=== PATIENT | female | born 1960 | race Caucasian/White ===

== ENCOUNTER 2017-03-17 15:30 | Emergency (ER) | payer MEDICAID, OTHER ==
[~2017-03-17] VITALS: Ht 167.6 cm; Wt 94.0 kg
[2017-03-17 15:35] VITALS: Ht 167.6 cm; Wt 94.0 kg
[2017-03-17] MEDS ORDERED: ONDANSETRON (ODT) 4 MG TAB ODT STA (15:57)
[2017-03-17] MEDS ORDERED: ACETAMINOPHEN 325 MG TAB PO ONE (16:00)
--- NOTE | 2017-03-17 16:26 | ERD ---
ER Documentation Chief Complaint Chief Complaint Complains of urine problems x 3 days HPI 56 year old female comes in with painful urination for the past 2-3 days, she feels as if she has had a fever as well and reports low back pain. She describes burning with urination, achy low back pain in the left lumbar region. She has not had any vomiting but reports associated nausea. She has been taking ibuprofen for her symptoms. She denies hematuria. ROS All systems reviewed and are negative except as per history of present illness. Medications Home Meds Active Scripts Acetaminophen with Codeine (Acetaminophen-Cod #3 Tablet) 1 Each Tablet, 1 TAB PO Q6H Y for PAIN, #7 TAB Prov:YAIMA SAMUELS PA-C 03/17/17 Cephalexin* (Keflex*) 500 Mg Capsule, 500 MG PO TID for 10 Days, CAP Prov:YAIMA SAMUELS PA-C 03/17/17 Physical Exam Vitals Vital Signs Date Time Temp Pulse Resp B/P Pulse Ox O2 Delivery O2 Flow Rate FiO2 03/17/17 15:35 98.3 91 20 116/67 94 Physical Exam General: Well-developed, well-nourished. The patient appears in no acute distress. HEENT: Head is normocephalic, atraumatic. No scleral icterus. Neck: Supple. Nontender. Lungs: Clear to auscultation. Normal air movement. Heart: Regular rate and rhythm. S1 and S2 are normal. No murmurs, gallops, or rubs. Abdomen: Soft, nontender, nondistended. Bowel sounds are normoactive. : There is no midline tenderness, lumbosacral tenderness on the left side, no CVA tenderness. Extremities: No clubbing or cyanosis. Normal pulses. Moving extremities x 4. No weakness. Neurologic: Alert and oriented 3. No focal deficits. Skin: Normal turgor. No rash or lesions. Results 24 hrs Laboratory Tests Test 03/17/17 16:11 Urine Color YELLOW Urine Clarity TURBID Urine pH 5.0 Urine Specific [place] 1.016 Urine Ketones NEGATIVEmg/dL Urine Nitrite NEGATIVEmg/dL Urine Bilirubin NEGATIVEmg/dL Urine Urobilinogen NEGATIVEmg/dL Urine Leukocyte Esterase 2+Felisha/ul Urine Microscopic RBC 20/HPF Urine Microscopic WBC > 182/HPF Urine Squamous Epithelial Cells MANY/HPF Urine Bacteria FEW/HPF Urine Mucus FEW/HPF Urine Hemoglobin 1+mg/dL Urine Glucose 1+mg/dL Urine Total Protein 2+mg/dl Current Medications Medications (Trade) Dose Ordered Sig/José Route PRN Reason Start Time Stop Time Status Last Admin Dose Admin Ondansetron HCl (Zofran Odt) 4 mg ONCE STAT ODT 03/17/17 15:57 03/17/17 15:59 DC 03/17/17 16:11 Acetaminophen (Tylenol Tab) 650 mg ONCE ONCE PO 03/17/17 16:00 03/17/17 16:01 DC 03/17/17 16:11 Ceftriaxone Sodium (Rocephin) 1 gm ONCE ONCE IM 03/17/17 17:00 03/17/17 17:01 Lidocaine (Xylocaine 1% (Mdv) 20 ml) 2 ml ONCE ONCE IM 03/17/17 17:00 03/17/17 17:01 Procedures/MDM 56-year-old female comes in with symptoms of a UTI with low back pain. She reports tactile fevers at home and a urinalysis is consistent with UTI with 2+ leukocyte esterase and greater than 182 white blood cells. She is afebrile, her vitals are normal, the patient does not appear to be in sepsis. She does not have any clinical signs of pyelonephritis including CVA tenderness. Patient 's back pain is in the lumbar region. However given her age, history of diabetes, and history tactile fevers the patient was given Rocephin. She will be given Keflex, advised increase fluids, take ibuprofen and Tylenol were through be written for supplemental pain. Departure Diagnosis: Primary Impression: UTI (urinary tract infection) Condition: YAIMA De La Rosa PA-C Mar 17, 2017 16:26
[2017-03-17 16:36] LABS: ADD UMIC YES; UR ASCORBIC ACID NEGATIVE (NEGATIVE); UR BACTERIA FEW /HPF (NONE SEEN); UR BILIRUBIN (Dip) NEGATIVE (NEGATIVE); UR BLOOD (Dip) 1+ mg/dL (NEGATIVE); UR CLARITY TURBID (CLEAR); UR COLOR YELLOW (YELLOW); UR GLUCOSE (Dip) 1+ mg/dL (NEGATIVE); UR KETONES (Dip) NEGATIVE (NEGATIVE); UR LEUKOCYTE ESTERASE (Dip) 2+ Leu/ul (NEGATIVE); UR MUCUS FEW /HPF (NONE SEEN); UR NITRITE (Dip) NEGATIVE (NEGATIVE); UR RBC 20 /HPF (0-5); UR SPECIFIC GRAVITY (Dip) 1.016 (1.003-1.030); UR SQUAMOUS EPITHELIAL CELL MANY /HPF (FEW); UR TOTAL PROTEIN (Dip) 2+ mg/dl (NEGATIVE); UR UROBILINOGEN (Dip) NEGATIVE (NEGATIVE)
[2017-03-17] MEDS ORDERED: CEPH-443 PO (16:39)
[2017-03-17] MEDS ORDERED: ACET1TAB40 PO (16:39)
[2017-03-17] MEDS ORDERED: LIDOCAINE 1% (MDV) 20 ML INJ IM ONE (17:00)
[2017-03-17] MEDS ORDERED: CEFTRIAXONE 1 GM INJ IM ONE (17:00)
== END 2017-03-17 17:18 | disposition home or self-care (01) ==
LOC: FTE 15:30
DX: N39.0 Urinary tract infection, site not specified (principal)
CPT/HCPCS: 81001; 96372; J0696; Z7502; Z7610

== ENCOUNTER 2017-03-21 17:01 | Emergency (ER) | payer MEDICAID ==
[~2017-03-21] VITALS: Wt 77.3 kg
[~2017-03-21 17:01] MED LIST: ACET1TAB40 PO; CEPH-443 PO
[2017-03-21] MEDS ORDERED: SOD CHLORIDE 0.9% 1,000 ML IV STA ×2 (17:51→19:22)
[2017-03-21] MEDS ORDERED: CIPROFLOXACIN 400MG/D5W 200 ML IVPB STA (17:58)
[2017-03-21 18:43] LABS: ADD UMIC NO; UR ASCORBIC ACID NEGATIVE (NEGATIVE); UR BILIRUBIN (Dip) NEGATIVE (NEGATIVE); UR BLOOD (Dip) NEGATIVE (NEGATIVE); UR CLARITY CLEAR (CLEAR); UR COLOR YELLOW (YELLOW); UR GLUCOSE (Dip) 3+ mg/dL (NEGATIVE); UR KETONES (Dip) NEGATIVE (NEGATIVE); UR LEUKOCYTE ESTERASE (Dip) NEGATIVE Leu/ul (NEGATIVE); UR NITRITE (Dip) NEGATIVE (NEGATIVE); UR SPECIFIC GRAVITY (Dip) 1.021 (1.003-1.030); UR TOTAL PROTEIN (Dip) NEGATIVE (NEGATIVE); UR UROBILINOGEN (Dip) NEGATIVE (NEGATIVE)
[2017-03-21 18:49] LABS: BASOPHIL # 0.1 10^3/ul (0.0-0.1); BASOPHILS % 0.5 % (0.0-2.0); EOSINOPHILS # 0.3 10^3/ul (0.0-0.5); EOSINOPHILS % 2.7 % (0.0-7.0); HEMATOCRIT 39.3 % (37.0-47.0); HEMOGLOBIN 12.9 g/dl (12.0-16.0); LYMPHOCYTES # 2.2 10^3/ul (0.8-2.9); LYMPHOCYTES % 23.9 % (15.0-51.0); MEAN CORPUSCULAR HEMOGLOBIN 29.1 pg (29.0-33.0); MEAN CORPUSCULAR HGB CONC 32.8 g/dl (32.0-37.0); MEAN CORPUSCULAR VOLUME 88.7 fl (82.0-101.0); MEAN PLATELET VOLUME 11.1 fl (7.4-10.4); MONOCYTE # 1.2 10^3/ul (0.3-0.9); MONOCYTES % 12.6 % (0.0-11.0); NEUTROPHIL # 5.5 10^3/ul (1.6-7.5); NEUTROPHILS % 59.7 % (39.0-77.0); PLATELET COUNT 171 10^3/UL (140-415); RED BLOOD COUNT 4.43 10^6/ul (4.20-5.40); RED CELL DISTRIBUTION WIDTH 12.9 % (11.5-14.5); WHITE BLOOD COUNT 9.3 10^3/ul (4.8-10.8)
[2017-03-21 19:18] LABS: ALBUMIN 3.5 g/dl (3.3-4.9); ALBUMIN/GLOBULIN RATIO 0.79; BILIRUBIN,INDIRECT 0.3 mg/dl (0-1.1); BILIRUBIN,TOTAL 0.3 mg/dl (0.2-1.3); CALCIUM 9.3 mg/dl (8.4-10.2); CREATININE 0.86 mg/dl (0.44-1.00); POTASSIUM 3.8 mmol/L (3.5-5.1); TOTAL PROTEIN 7.9 g/dl (6.1-8.1)
[2017-03-21] MEDS ORDERED: metFORMIN 500 MG TAB PO STA (19:24)
[2017-03-21] MEDS ORDERED: PHEN-538 PO (19:32)
[2017-03-21 20:27] VITALS: BP 118/77; PULSE 75; RESP 16; TEMP 98.3
--- NOTE | 2017-03-21 23:41 | ERD ---
ER Documentation Chief Complaint Chief Complaint unresolved uti HPI This is a 56-year-old female with diabetes type 2 presenting to the emergency department stating that she still has mild dysuria for the past 5 days. Patient was seen here a few days prior to being seen and was diagnosed with a urinary tract infection. Patient was given ceftriaxone in the ED and a prescription for Keflex as an outpatient. Patient denies any flank pain, fevers , hematuria. States that she took metformin this morning but did not take her evening dose yet ROS All systems reviewed and are negative except as per history of present illness. Medications Home Meds Active Scripts Phenazopyridine Hcl* (Pyridium*) 200 Mg Tab, 200 MG PO TID Y for URINARY PAIN, # 10 TAB Prov:GAGAN VALDEZ PA-C 03/21/17 Acetaminophen with Codeine (Acetaminophen-Cod #3 Tablet) 1 Each Tablet, 1 TAB PO Q6H Y for PAIN, #7 TAB Prov:YAIMA SAMUELS PA-C 03/17/17 Cephalexin* (Keflex*) 500 Mg Capsule, 500 MG PO TID for 10 Days, CAP Prov:YAIMA SAMUELS PA-C 03/17/17 PMhx/Soc Medical and Surgical Hx: pt denies Medical Hx, pt denies Surgical Hx Hx Alcohol Use: No Hx Substance Use: No Hx Tobacco Use: No Smoking Status: Never smoker Physical Exam Vitals Vital Signs Date Time Temp Pulse Resp B/P Pulse Ox O2 Delivery O2 Flow Rate FiO2 03/21/17 20:27 98.3 75 16 118/77 98 Room Air 03/21/17 17:02 99.9 94 20 122/81 98 Physical Exam General: well-developed/well-nourished, in no apparent distress, non-toxic appearing HENT: NC/AT Eyes: Conjunctiva normal Neck: Supple Pulm: CTA bilaterally, normal breathing CV: Normal S1S2 GI: Soft, non-distended, normal bowel sounds, tender to palpation all quadrants Back: No midline tenderness, no masses, No CVAT Ext: No clubbing, cyanosis, or edema Neuro: Alert and orientated Skin: intact, normal turgor Psych: Normal mood and mentation Result Diagram: 03/21/17 1824 03/21/17 182 Results 24 hrs Laboratory Tests Test 03/21/17 18:20 03/21/17 18:24 03/21/17 19:51 Urine Color YELLOW Urine Clarity CLEAR Urine pH 6.0 Urine Specific [place] 1.021 Urine Ketones NEGATIVEmg/dL Urine Nitrite NEGATIVEmg/dL Urine Bilirubin NEGATIVEmg/dL Urine Urobilinogen NEGATIVEmg/dL Urine Leukocyte Esterase NEGATIVELeu/ul Urine Hemoglobin NEGATIVEmg/dL Urine Glucose 3+mg/dL Urine Total Protein NEGATIVEmg/dl White Blood Count 9.310^3/ul Red Blood Count 4.4310^6/ul Hemoglobin 12.9g/dl Hematocrit 39.3% Mean Corpuscular Volume 88.7fl Mean Corpuscular Hemoglobin 29.1pg Mean Corpuscular Hemoglobin Concent 32.8g/dl Red Cell Distribution Width 12.9% Platelet Count 89474^3/UL Mean Platelet Volume 11.1fl Neutrophils % 59.7% Lymphocytes % 23.9% Monocytes % 12.6% Eosinophils % 2.7% Basophils % 0.5% Nucleated Red Blood Cells % 0.0/100WBC Neutrophils # 5.510^3/ul Lymphocytes # 2.210^3/ul Monocytes # 1.210^3/ul Eosinophils # 0.310^3/ul Basophils # 0.110^3/ul Nucleated Red Blood Cells # 0.010^3/ul Sodium Level 139mmol/L Potassium Level 3.8mmol/L Chloride Level 98mmol/L Carbon Dioxide Level 32mmol/L Anion Gap 13 Blood Urea Nitrogen 16mg/dl Creatinine 0.86mg/dl Glucose Level 343mg/dl Calcium Level 9.3mg/dl Total Bilirubin 0.3mg/dl Direct Bilirubin 0.00mg/dl Indirect Bilirubin 0.3mg/dl Aspartate Amino Transf (AST/SGOT) 33IU/L Alanine Aminotransferase (ALT/SGPT) 49IU/L Alkaline Phosphatase 185IU/L Total Protein 7.9g/dl Albumin 3.5g/dl Globulin 4.40g/dl Albumin/Globulin Ratio 0.79 Lipase 122U/L Bedside Glucose 304mg/dL Current Medications Medications (Trade) Dose Ordered Sig/José Route PRN Reason Start Time Stop Time Status Last Admin Dose Admin Sodium Chloride 1,000 ml @ 1,000 mls/hr Q1H STAT IV 03/21/17 17:51 03/21/17 18:50 DC 03/21/17 18:33 Ciprofloxacin/ Dextrose 200 ml @ 200 mls/hr ONCE STAT IVPB 03/21/17 17:58 03/21/17 18:57 DC 03/21/17 17:58 Sodium Chloride (NS) 1,000 ml @ 1,000 mls/hr Q1H STAT IV 03/21/17 19:22 03/21/17 19:25 DC Metformin HCl (Glucophage) 500 mg ONCE STAT PO 03/21/17 19:24 03/21/17 19:25 DC 03/21/17 20:09 Procedures/MDM 6-year-old female with history of diabetes type 2 presents the emergency department complaining of dysuria for the past 5 days. Patient was seen at this facility on March 17 and given Keflex as an outpatient. A urinalysis was done today and did not show any evidence of infection, I discussed with patient that it is best for her to continue to take Keflex. A urine culture was sent out. Lab work was drawn. CBC did not show any evidence of leukocytosis or anemia. CMP did not show any evidence of renal, liver, or electrolyte abnormalities. Glucose was elevated on 350 without any evidence of DKA or hyperosmolar state. Patient was given 1 L of fluids and her Metformin dose. Patient is stable to be discharged home to follow-up with primary care physician. Discussed return to the ER for any worsening symptoms. She understands and agrees this plan. Departure Diagnosis: Primary Impression: Dysuria Additional Impression: Hyperglycemia Condition: Stable Patient Instructions: Dysuria, Hyperglycemia (High Blood Sugar) Additional Instructions: Visite a chi bart keenan para un EXAMEN.Regrese a estas instalaciones si no se mejora sandeep esperbamos o sandeep le dijimos. [place] toda la medicina mario y sandeep se le indic. Regrese a estas instalaciones si no se mejora sandeep esperbamos o sandeep le dijimos. Continua antibiotica GAGAN VALDEZ PA-C Mar 21, 2017 23:41
== END 2017-03-21 20:28 | disposition home or self-care (01) ==
LOC: FTE 17:01
DX: R30.0 Dysuria (principal); E11.9 Type 2 diabetes mellitus without complications
CPT/HCPCS: 80053; 81003; 82962; 83690; 85025; 87086; 96374; J0744; J7030; Z7502; Z7610

== ENCOUNTER 2017-06-05 15:11 | Emergency (ER) | END 2017-06-05 23:40 | disposition left against medical advice (07) ==

== ENCOUNTER 2018-10-19 07:38 | Day surgery (SDC) | payer BC ==
[~2018-10-19] VITALS: Ht 158.8 cm; Wt 99.7 kg
[2018-10-19] VITALS (10 sets, daily range): BP systolic 109–135; BP diastolic 63–79; PULSE 67–79; RESP 10–19; Ht 158.8 cm; Wt 99.7 kg
[~2018-10-19 07:38] MED LIST changes: -ACET1TAB40 PO; +ATOR40TA68 PO; -CEPH-443 PO; +GLIM2TAB PO; +INSU100I33 SUBCUTANE; +METF100010 PO
[2018-10-19] MEDS ORDERED: DICLOFENAC 0.1% 2.5 ML OPH (PRE-OP) OPER SCH (08:30)
[2018-10-19] MEDS ORDERED: ACETAMINOPHEN 325 MG TAB (POST-OP) PO PRN (08:30)
[2018-10-19] MEDS: CIPROFLOXACIN 0.3% 2.5 ML OPH (PRE-OP) OPER SCH ×2 (08:37→09:05)
[2018-10-19] MEDS: PHENYLephrine 2.5% 15 ML OPH (PRE-OP) OPER SCH ×2 (08:37→09:05)
[2018-10-19] MEDS: TROPICAMIDE 1% 15 ML OPH (PRE OP) OPER SCH ×2 (08:38→09:05)
[2018-10-19] MEDS: DICLOFENAC 0.1% 2.5 ML OPH (PRE-OP) OPER SCH ×2 (08:38→09:06)
[2018-10-19] MEDS: TETRACAINE 0.5% 4 ML OPH (PRE-OP) OPER SCH ×2 (08:38→09:06)
[2018-10-19] MEDS ORDERED: SULF1TAB31 PO (08:42)
[2018-10-19] MEDS ORDERED: MTF1000T PO (08:42)
[2018-10-19] MEDS ORDERED: ATOR40TA68 PO (08:42)
[2018-10-19] MEDS ORDERED: KRIL1CAP3 PO (08:45)
[2018-10-19] MEDS ORDERED: CYCLOPENTOLATE 1% 2 ML OPH OPER ONE (09:00)
[2018-10-19] MEDS ORDERED: NA HYALURONATE/CHONDROITIN 0.5 ML SYG ONE (09:25)
[2018-10-19] MEDS ORDERED: CARBACHOL 0.01% 1.5 ML OPH INJ ONE (09:25)
[2018-10-19] MEDS ORDERED: TOBRAMYCIN/DEXAMETH 3.5 GM OPH OINT ONE (09:25)
[2018-10-19] MEDS ORDERED: LIDOCAINE 4% (MPF) 5 ML INJ ONE (09:25)
[2018-10-19] MEDS ORDERED: TETRACAINE 0.5% 4 ML OPH ONE (09:25)
--- NOTE | 2018-10-19 09:26 | HPN ---
Date/Time of Note Date/Time of Note DATE: 10/19/18 TIME: 09:25 Interval H&P Admission Note Pt. seen H&P reviewed: No system changes Mild Chronic cough, no fever and no Phlegm reported EDVIN MOBLEY MD Oct 19, 2018 09:26
--- NOTE | 2018-10-19 09:31 | PREAC ---
Date/Time of Note Date/Time of Note DATE: 10/19/18 TIME: 09:29 Anesthesia Eval and Record Evaluation Time Pre-Procedure Interview DATE: 10/19/18 TIME: 09:29 Age 58 Sex female NPO: 8 hrs Preoperative diagnosis Cataract Planned procedure CE/IOL Past Medical History Past Medical History: Includes Cardio: Dyslipidemia Endo: Diabetes GI: Obesity Surgery & Anesthesia Issues No known issue Meds Anticoagulation: No Beta Dina within 24 hr: No Reason Beta Dina not given: Pt. not on B-Dina Reported Medications Krill/Om3/Dha/Epa/Om6/Lip/Astx (Krill Oil 1,000 Mg Softgel) 1 Each Capsule, 1 CAP PO DAILY, CAP 10/19/18 Atorvastatin* (Atorvastatin*) 40 Mg Tablet, 40 MG PO QHS, #30 TAB 10/19/18 Metformin* (Glucophage*) 1,000 Mg Tablet, 1000 MG PO BID, #60 TAB 10/19/18 Sulfamethoxazole/Trimethoprim* (Bactrim Ds* Tablet) 1 Each Tablet, 1 TAB PO BID, TAB 10/19/18 Insulin Glargine,Hum.rec.anlog (Basaglar Kwikpen U-100) 100 Unit/1 Ml Insuln.pen, 8 AMP SUBCUTANE QHS 06/08/18 Glimepiride* (Glimepiride*) 2 Mg Tablet, 2 MG PO WITH BREAKFAST, TAB 06/08/18 Discontinued Reported Medications Metformin Hcl* (Metformin Hcl*) 1,000 Mg Tablet, 1000 MG PO BID, #30 TAB 06/08/18 Atorvastatin* (Atorvastatin*) 40 Mg Tablet, 40 MG PO QHS, #30 TAB 06/08/18 Current Medications Tetracaine HCl (Tetracaine 0.5% Steri-Unit Sharmaine) 1 drop Q5 MIN X3 OPER Last administered on 10/19/18at 09:06; Admin Dose 1 DROP; Start 10/19/18 at 08:30 Tropicamide (Mydriacyl 1%) 1 drop Q5 MIN X3 OPER Last administered on 10/19/18at 09:05; Admin Dose 1 DROP; Start 10/19/18 at 08:30 Phenylephrine HCl (Ak-Dilate 2.5%) 1 drop Q5 MIN X3 OPER Last administered on 10/19/18at 09:05; Admin Dose 1 DROP; Start 10/19/18 at 08:30 Ciprofloxacin HCl (Ciloxan 0.3% Oph) 1 drop Q5 MIN X3 OPER Last administered on 10/19/18at 09:05; Admin Dose 1 DROP; Start 10/19/18 at 08:30 Diclofenac Sodium (Voltaren 0.1%) 1 drop Q5 MIN X3 OPER Last administered on 10/19/18at 09:06; Admin Dose 1 DROP; Start 10/19/18 at 09:00 Meds reviewed: Yes Allergies Coded Allergies: No Known Allergy (Unverified , 10/19/18) Allergies Reviewed: Yes Labs/Studies Labs Reviewed: Reviewed by anesthesiologist test: N/A Pre-procedure Exam Last vitals Vital Signs Date Temp Pulse Resp B/P (MAP) Pulse Ox O2 O2 Flow FiO2 Time Delivery Rate 10/19/18 98.9 79 16 135/63 95 Room Air 08:50 (87) Airway: Adequate mouth opening Mallampati: Mallampati II Teeth: Normal Lung: Normal Heart: Normal ASA Physical Status ASA physical status: 3 Emergency: None Planned Anesthetic General/MAC: MAC Pre-operative Attestations Prior to commencing anesthesia and surgery, the patient was re-evaluated, there was verification of: *The patient's identity *The results of appropriate recent lab work and preoperative vital signs *The above evaluation not changing prior to induction *Anesthetic plan, risk benefits, alternative and complications discussed with patient/family; questions answered; patient/family understands, accepts and wishes to proceed. MONICA MARTINEZ MD Oct 19, 2018 09:30
[2018-10-19] MEDS ORDERED: MIDAZOLAM 1 MG/ML 2 ML INJ ONE (09:38)
[2018-10-19] MEDS ORDERED: TOBRAMYCIN/DEXAMETH 3.5 GM OPH OINT LEFT EYE ONE (10:16)
[2018-10-19] MEDS ORDERED: LIDOCAINE 4% (MPF) 5 ML INJ INJ ONE (10:16)
--- NOTE | 2018-10-19 10:18 | PAC ---
Date/Time of Note Date/Time of Note DATE: 10/19/18 TIME: 10:18 Post-Anesthesia Notes Post-Anesthesia Note Last documented vital signs Vital Signs Date Temp Pulse Resp B/P (MAP) Pulse Ox O2 O2 Flow FiO2 Time Delivery Rate 10/19/18 98.9 79 16 135/63 95 Room Air 08:50 (87) Activity: WNL Respiratory function: WNL Cardiovascular function: WNL Mental status: Baseline Pain reasonably controlled: Yes Hydration appropriate: Yes Nausea/Vomiting absent: Yes MONICA MARTINEZ MD Oct 19, 2018 10:18
[2018-10-19] MEDS ORDERED: OXYCODONE/ACETAMINOPHEN (5/325) TAB PO PRN (10:30)
[2018-10-19] MEDS ORDERED: ONDANSETRON 4 MG INJ IV PRN (10:30)
--- NOTE | 2018-10-19 11:41 | OPR ---
Date/Time of Note Date/Time of Note DATE: 10/19/18 TIME: 11:38 Operative Report Procedure Date: Oct 19, 2018 Preoperative Diagnosis Visually Significant Cataract Left Eye Postoperative Diagnosis Visually Significant Cataract Left Eye Operation/Procedure Performed Phacoemulsification with Inraocular Lens Implantation Left Eye Surgeon see signature line Bicycle Subassembler Yinka Anesthesia Type: MAC Anesthesiologist: MONICA MARTINEZ MD Tourniquet Time: none Estimated Blood Loss: none Transfusion none Specimen none Grafts/Implants IMPLANT: [employer]ley Acrysof IOL Model [id number] Power : 21.5 D Tubes/Drains none Complications none Pt Condition Post Procedure: stable Disposition: PACU Indications INDICATIONS FOR SURGERY: Patient has visually significant Cataract in the operative eye affecting the activities of daily living. this has affected patients ability to perform some of the daily tasks such as reading, watching Television, and in some cases driving. The patient has tried a change of glasses, which have failed to provide the satisfactory improvement in vision. Procedure Description OPERATIVE REPORT: The patient was identified and brought to the pre-op area. The operative eye was identified and informed consent was obtained after the patient fully understood the risks, benefits and alternatives of the planned surgery. Three sequential applications of Mydriacyl 1%, Phenylephrine 2.5%, Tetracaine 1% and Ocuflox eyedrops were applied to the operative eye at 5 minute intervals. Patient was brought to the operating room and placed in a supine position. The monitoring equipment was attached and IV sedation was initiated by the Anesthesiologist. The Operative eye was cleaned , prepared and draped in a sterile fashion. The eyelid speculum was placed and microscope was aligned for good visualization. Side port incision of 1.1 mm was made at the limbus using a MVR blade and globe fixator. Preservative free Lidocain 1% in BSS was injected to enhance the local anesthesia. a dispersive Viscoelastic substance was injected in the anterior chamber. A clear corneal Limbal Temporal incision was performed using a 2.4 mm angled Keratome blade in a biplanar configuration and about 2.5 mm long. Anterior Capsulorrhexis was initiated with a Cystotome and completed with Utrata's scissors to achieve a 5 mm round, continuous and curvilinear opening. Hydrodissection and hydrodelineation was performed to loosen up the nucleus and epinucleus by injecting BSS solution with a Hydrodissection canula. The nucleus was mobilized to rotate freely with a kuglin's hook. The phaco handpiece of the [employer]ion phaco machine was brought in the field. The nucleus was disassembled by using a modified Stop and Chop technique. Epinucleus was aspirated. Cortical material was aspirated with an I/A handpiece and angled soft tip aspirator. A foldable Intraocular lens of the chosen model was inserted in the folded position into the capsular bag and was allowed to open fully. The lens was rotated to achieve a good central position in the bag. The viscoelastic substance was fully removed using an I/A system. The incisions were sealed by a hydrostatic closure by injecting BSS. The incision was tested for leakage and was found to be sealed. The eyelid speculum was removed. Tobradex eye ointment and Oculflox eyedrops were instilled in the eye. Eye patch and eye shield were taped in place over closed eye.The patient tolerated the procedure very well without any complications.The patient was transferred to the recovery room in a stable condition for further monitoring. The patient was discharged to go home once the discharge criteria was met with written advice about post operative care and follow up appointment. EDVIN MOBLEY MD Oct 19, 2018 11:41
== END 2018-10-19 11:31 | disposition home or self-care (01) ==
LOC: SDS 07:38
PROVIDERS: ATTEND Ophthalmology
DX: H26.8 Other specified cataract (principal); E78.5 Hyperlipidemia, unspecified; E11.9 Type 2 diabetes mellitus without complications; Z79.84 Long term (current) use of oral hypoglycemic drugs; Z79.4 Long term (current) use of insulin
CPT/HCPCS: 66984; 71045; 82962; J2250; V2632; Z7512; Z7610